=== PATIENT | female | born 1985 | race Caucasian/White ===

== ENCOUNTER 2019-08-23 04:14 | Emergency (ER) | payer OTHER ==
[~2019-08-23] VITALS: Ht 162.6 cm; Wt 87.3 kg
[2019-08-23] MEDS ORDERED: TOPI100T8 PO (04:34)
--- NOTE | 2019-08-23 04:38 | NUR ---
PT TO ED WITH C/O VAGINAL BLEEDING, DYSURIA, AND BILATERAL LOWER EXTREMITY EDEMA. A4. PT REPORTS RECENT . REPORTS [facility]ING [facility] WHERE US CONFIRMED SHE WAS [id number]. REPORTS SHE WAS GIVEN MIFEPRISTONE AND MISOPROSTOL THERE AND ANOTHER DOSE 24-48 HOURS LATER. REPORTS PERSISTENT VAGINAL BLEEDING. REPORTS CHANGING PAD A FEW TIMES PER DAY. REPORTS SOME DYSURIA WHILE URINATING. REPORTS BILATERAL LOWER EXTREMITY EDEMA THAT JUST STARTED YESTERDAY. REPROTS TRAVELING FROM [place] BUT NOT IN THE CAR FOR MORE THAN 5 HOURS AND FREQUENTLY STOPPING. DENIES HX OF THIS. REPORTS TAKING TOPIRAMATE DAILY FOR HEADACHE AND RIGHT ARM TREMORS. DENIES ANY OTHER MEDICAL HX. ALCOHOL RARELY. DENIES DRUG USE.
--- NOTE | 2019-08-23 05:07 | NUR ---
LABS DRAWN. STRAIGHT CATH PERFORMED UTILIZING STERILE TECHNIQUE.
[2019-08-23 05:16] LABS: MICROSCOPIC AUTO
[2019-08-23 05:19] LABS: BASOPHILS # (AUTO) 0.04 x10^3/uL (0-0.1); BASOPHILS % (AUTO) 0 % (0-1); EOSINOPHILS # (AUTO) 0.13 x10^3/uL (0-0.4); EOSINOPHILS % (AUTO) 1 % (1-7); LYMPHOCYTES # (AUTO) 3.02 x10^3/uL (1-3.4); LYMPHOCYTES % (AUTO) 31 % (22-44); MD NO; MEAN CORPUSCULAR HEMOGLOBIN 33.5 pg (27.0-34.8); MEAN CORPUSCULAR HGB CONC 33.7 g/dL (32.4-35.8); MEAN CORPUSCULAR VOLUME 99.5 fL (80-100); MEAN PLATELET VOLUME 7.3 fL (7.4-10.4); MONOCYTES # (AUTO) 0.64 x10^3/uL (0.2-0.8); MONOCYTES % (AUTO) 7 % (2-9); NEUTROPHILS # (AUTO) 5.98 x10^3/uL (1.8-6.8); NEUTROPHILS % (AUTO) 61 % (42-75); PLATELET COUNT 350 x10^3/uL (130-400); RED BLOOD COUNT 3.35 x10^6/uL (3.82-5.3); RED CELL DISTRIBUTION WIDTH 11.9 % (9.6-15.2)
--- NOTE | 2019-08-23 05:20 | NUR ---
PT TO US
[2019-08-23 05:31] LABS: ANION GAP 6 mmol/L (5-15); CALCIUM 8.6 mg/dL (8.5-10.1); CHLORIDE 110 mmol/L (98-107)
[2019-08-23 05:36] LABS: ALANINE AMINOTRANSFERASE 17 U/L (12-78); ALKALINE PHOSPHATASE 71 U/L (45-117); BILIRUBIN,TOTAL 0.3 mg/dL (0.2-1.0); CREATININE 0.92 mg/dL (0.55-1.02); TOTAL PROTEIN 6.8 g/dL (6.4-8.2)
--- NOTE | 2019-08-23 06:32 | NUR ---
PROVIDER SPOKE WITH OBGYN CLERK OF SCALES. PT TO F/U OUTPATIENT.
[2019-08-23 06:59] VITALS: BP 111/68
== END 2019-08-23 07:01 | disposition home or self-care (01) ==
LOC: ED 04:50
DX: O03.38 Urinary tract infection following incomplete spontaneous abortion (principal); R10.2 Pelvic and perineal pain
CPT/HCPCS: 36415; 76830; 80053; 81001; 84702; 85025; 87077; 87086; 87186; 99284